=== PATIENT | female | born 1945 | race Caucasian/White ===

== ENCOUNTER 2016-12-08 13:12 | Inpatient (IN) | payer MEDICARE, OTHER ==
--- NOTE | ~2016-12-08 | HP ---
History And Physical [address] [place]. [address] NAME: DIAMOND CHOWDARY : 45 STATUS : ADM IN [facility]#: [id number] AGE: 71 ADM/REG DATE : 12/08/16 MR#: [id number] REPORT SERV DATE: 12/08/16 DICTATED BY: AMINA BRIGGS DATE: 12/08/16 REPORT STATUS : Draft TRANSCRIBED BY: MODL DATE: 12/08/16 DATE OF ADMISSION: 12/08/2016 CHIEF COMPLAINT: Leg swelling. HISTORY OF PRESENT ILLNESS: This is a 71-year-old female patient, who comes to the hospital very often with the same problem, hypervolemia with hypoalbuminemia, came to the hospital with leg swelling for two to three days. She was discharged back in 10/12/2016 after she was treated with aggressive diuretics and also thoracentesis. She was discharged with high dose of protein diet and torsemide, 100 mg once a day. She said she was doing well for five to six weeks, but she started retaining her fluid in her leg back up to thigh. She does have a chronic respiratory failure with hypoxia, though she carries oxygen 2.5 L all the time. She has also complained of dysuria for two days. She feels like she had a urinary tract infection. For her fluid retention, she only takes 32 ounces of water a day at home, and she takes protein booster shakes at home. Her blood work is showing some improvement in her albumin level, which is 1.8 this time compared to last time of 1.3 when she was here. She denies any fever or chills. No vision changes. No headache. No palpitation. No short of breath. No chest pain. No nausea or vomiting. No abdominal pain. No bleeding. All other systems are reviewed and negative. PAST MEDICAL HISTORY: 1. Recurrent admission with a hypervolemia with pleural effusion and vascular congestion. 2. History of a chronic respiratory failure with hypoxia, carrying 2.5 L of oxygen all the time. 3. History of the right upper extremity DVT. 4. Left diaphragm hernia. 5. History of diastolic heart failure. 6. Hypothyroidism. 7. Diabetes. 8. History of CVA. 9. History of esophageal cancer in 1992. 10.Diverticulitis. 11.Peptic ulcer disease. PAST SURGICAL HISTORY: 1. Esophagectomy in 1992 and with stomach pull-through and large hiatal hernia. 2. Cholecystectomy. History And Physical [address] [address] NAME: DIAMOND CHOWDARY : 45 STATUS : ADM IN [facility]#: [id number] AGE: 71 ADM/REG DATE : 12/08/16 MR#: [id number] REPORT SERV DATE: 12/08/16 DICTATED BY: AMINA BRIGGS DATE: 12/08/16 REPORT STATUS : Draft TRANSCRIBED BY: BRO DATE: 12/08/16 3. Thyroid surgery. 4. Left ankle surgery. 5. Right ear surgery. ALLERGIES: BACTRIM. SOCIAL HISTORY: She is a . She lives with her children. Denies any alcohol and smoking use. FAMILY HISTORY: Father had COPD and lung cancer. MEDICATIONS AT HOME: 1. Albuterol as needed. 2. Aspirin 81 mg once a day. 3. Calcium with vitamin D once a day. 4. Valium 5 mg twice a day. 5. Ferrous sulfate 325 once a day. 6. Breo 1 inhaler every day. 7. Levothyroxine 75 mcg once a day. 8. Mag-Oxide 800 mg once a day. 9. Metformin 1000 mg once a day. 10.Multivitamin once a day. 11.Omeprazole 20 mg twice a day. 12.Potassium 40 mEq once a day. 13.Pravachol 40 mg once at bedtime. 14.Aldactone 25 mg twice a day. 15.Demadex 100 mg once a day. PHYSICAL EXAMINATION: VITAL SIGNS: Blood pressure was 130/71, heart rate was 84, respiratory rate 20, saturation is 92% on 2 L of oxygen, temperature is 97.7. GENERAL APPEARANCE: She is alert, awake, not in acute distress. Chronic-ill looking, very pleasant 71-year-old lady. HEENT: Pupils are equal, round, and reactive to light. EOM not intact. CHEST: She has decreased breathing sound on both bases, especially left side is much quieter mid half down. She has a mild crackles on the right base. CARDIOVASCULAR: No murmur, rub, or gallop. Regular rhythm and rate. ABDOMEN: Bowel sounds present. There is no tenderness or rebound tenderness. EXTREMITIES: She has a severe edema up to thigh. LABORATORY DATA: Showed sodium 141, potassium 4.1, creatinine 0.73, hemoglobin 11, magnesium 1.4. WBC 11.1, hemoglobin 11.2, hematocrit 35, platelets 379. An x-ray of the chest showed a vascular congestion with chronic diaphragm hernia. Electrocardiogram showed a sinus rhythm and PACs. ASSESSMENT AND PLAN: 1. Anasarca secondary to hypoalbuminemia, recurrent. History And Physical [address] [address] NAME: DIAMOND CHOWDARY : 45 STATUS : ADM IN [facility]#: [id number] AGE: 71 ADM/REG DATE : 12/08/16 MR#: [id number] REPORT SERV DATE: 12/08/16 DICTATED BY: AMINA BRIGGS DATE: 12/08/16 REPORT STATUS : Draft TRANSCRIBED BY: BRO DATE: 12/08/16 2. Urinary tract infection. 3. Hypoalbuminemia. 4. Chronic respiratory hypoxic failure. 5. Hypothyroidism. Overall, the patient will be hospitalized on telemetry bed with IV diuretics and watching her I's and O's and improving her the swelling. We will measure strict I's and O's and we will insert a Peguero catheter and also we will do the albumin infusion for this case, and also empiric antibiotics with Rocephin for the UTI. Overall, the patient has a fair prognosis. So, this is a recurrent admission. The knows her prognosis. I explained to her and her daughter, and they voiced understanding. EKL/MODL ina Briggs M.D. / [id number] CC: Amina Briggs M.D.
--- NOTE | ~2016-12-08 | DS ---
Discharge Summary [facility] [address] [place]. [address] NAME: DIAMOND CHOWDARY : 45 STATUS : DIS IN PAT#: [id number] AGE: 71 ADM/REG DATE : 12/08/16 MR#: [id number] REPORT SERV DATE: 12/12/16 DICTATED BY: VIRGEN VELÁZQUEZ DATE: 12/11/16 REPORT STATUS : Draft TRANSCRIBED BY: BRO DATE: 12/11/16 ADMISSION DATE: 12/08/2016 DISCHARGE DATE: 12/11/2016 CONSULTATIONS: None. PROCEDURES: None. DISCHARGE DIAGNOSES: 1. Anasarca. 2. Hypoalbuminemia, severe. 3. Proteinuria. 4. Chronic respiratory failure with hypoxia. 5. Diastolic heart failure. 6. Hypothyroidism. 7. Diabetes mellitus type 2. 8. History of cerebrovascular accident. 9. History of esophageal cancer, status post esophagectomy with stomach pull-through and large hiatal hernia. 10.History of diverticulitis. 11.History of peptic ulcer disease. 12.Urinary tract infection. HISTORY OF PRESENT ILLNESS: For detailed HPI, please make reference to Dr. Gomez's dictation on 12/08/2016. In summary, this is a 71-year-old female, who presented to the hospital with generalized body swelling, most severe in the lower extremity. The patient has had multiple admissions and similar presentation of generalized body swelling, found to have severe hypoalbuminemia likely due to poor nutritional intake versus proteinuria. On presentation to the ER, physical examination was significant for bilateral lower extremity edema all the way to the mid thigh. Chest x-ray was significant for vascular congestion with chronic diaphragmatic hernia. An assessment of anasarca secondary to severe albuminuria recurrent was made in the ER. The patient was admitted to the Hospitalist Service. HOSPITAL COURSE: 1. Anasarca secondary to severe hypoalbuminemia. On presentation, the patient's albumin was 1.8. Also noted to have persistent proteinuria; however, renal function is within normal limits. Severe proteinuria etiology likely related to poor nutritional intake as the patient has a prior history of esophagectomy and occasionally has limited oral intake. The patient was started on aggressive IV diuretics with IV albumin in the hospital. The patient had adequate urine output. Generalized body swelling significantly improved. The patient's p.o. intake also improved during the course of this admission. A 24-hour urine was done that showed that the patient had persistent proteinuria. At the time of discharge, the patient was noted to have become euvolemic on physical exam, no longer having lower extremity edema. The patient was discharged home on p.o. Bumex 2 mg p.o. q.8 hours with potassium supplements daily and also Discharge Summary [address] [place]. [address] NAME: DIAMOND CHOWDARY : 45 STATUS : DIS IN PAT#: [id number] AGE: 71 ADM/REG DATE : 12/08/16 MR#: [id number] REPORT SERV DATE: 12/12/16 DICTATED BY: VIRGEN VELÁZQUEZ DATE: 12/11/16 REPORT STATUS : Draft TRANSCRIBED BY: BRO DATE: 12/11/16 advised to have increased protein intake as well as to follow up with Nephrology as an outpatient for definitive etiology of persistent proteinuria. 2. Urinary tract infection. The patient's urine was positive for E. coli during this admission. The patient had IV antibiotics at the time of discharge. The patient was transitioned to p.o. Ceftin to complete a total of seven days' treatment. 3. Chronic hypoxic respiratory failure. Noted to have chronic hypoxic respiratory failure, possibly due to pulmonary edema as well as undiagnosed obstructive sleep apnea. The patient was advised to have a sleep study as an outpatient. Following IV diuresis, the patient's oxygenation significantly improved. The patient was discharged back home on 2.5 L of O2 at baseline. 4. Hypothyroidism. The patient's Synthroid was continued throughout the course of this admission. DISCHARGE MEDICATIONS: 1. Bumex 2 mg p.o. q.8 hours. 2. Aspirin 81 mg p.o. daily. 3. Calcium plus vitamin D 600 mg p.o. daily. 4. Valium 5 mg p.o. b.i.d. p.r.n. 5. Ferrous sulfate 325 mg p.o. daily. 6. Levothyroxine 75 mcg p.o. daily. 7. Mag-Oxide 400 mg p.o. daily. 8. Multivitamins one p.o. daily. 9. Omeprazole 20 mg p.o. daily. 10.Potassium 20 mEq p.o. daily. 11.Spironolactone 25 mg tab p.o. b.i.d. 12.Metformin extended release 1000 mg p.o. daily. 13.Glimepiride 2 mg p.o. daily. 14.Albuterol inhaler. DISCHARGE FOLLOWUP: 1. The patient to follow up with Nephrology as an outpatient for further workup of definitive etiology of persistent proteinuria. 2. The patient to follow up with primary care physician within two weeks of discharge. DISCHARGE DIET: High-protein diet. DISCHARGE ACTIVITIES: As tolerated. Greater than 30 minutes was used to prepare this patient's discharge, reconcile medication, and advised the patient on discharge plans and followup. FRACISCOO/BRO Virgen Velázquez MD Discharge Summary [address] [place] [address] NAME: DIAMOND CHOWDARY : 45 STATUS : DIS IN PAT#: [id number] AGE: 71 ADM/REG DATE : 12/08/16 MR#: [id number] REPORT SERV DATE: 12/12/16 DICTATED BY: VIRGEN VELÁZQUEZ DATE: 12/11/16 REPORT STATUS : Draft TRANSCRIBED BY: BRO DATE: 12/11/16 / [id number] CC: Virgen Velázquez MD
[2016-12-08 12:25] LABS: BASOPHILS 0.4 %; BASOPHILS ABSOLUTE 0.04 10/3/uL (0.0-0.16); EOSINOPHILS 0.4 %; EOSINOPHILS ABSOLUTE 0.04 10/3/uL (0.0-0.53); HEMOGLOBIN 11.2 g/dL (12.0-16.0); IMMATURE GRANULOCYTES 0.2 %; IMMATURE GRANULOCYTES ABSOLUTE 0.02 10/3/uL (0.0-0.11); LYMPHOCYTES 8.9 %; LYMPHOCYTES ABSOLUTE 0.99 10/3/uL (0.67-4.30); MEAN CORPUSCULAR HEMOGLOB 30.4 pg (26.0-34.0); MEAN CORPUSCULAR VOLUME 95.1 fL (80-100); MEAN PLATELET VOLUME 9.6 fL (9.2-13.0); MONOCYTES 7.2 %; NEUTROPHILS 82.9 %; NEUTROPHILS ABSOLUTE 9.18 10/3/uL (2.02-8.40); PLATELET COUNT 379 10/3/uL (150-400); RBC DISTRIBUTION WIDTH 13.4 % (12.0-16.0); RED CELL COUNT 3.68 10/6/uL (4.0-5.6)
[2016-12-08 12:26] LABS: ER CBC TAT 0 Hrs 10 Mins; WHITE BLOOD CELLS 11.1 10/3/uL (4.5-10.5)
[2016-12-08 12:27] LABS: MANUAL DIFF NO %
[2016-12-08 12:28] LABS: ASCORBIC ACID (UR NOT ORDER) NEG (NEG); BILIRUBIN, URINE NEGATIVE (NEG); ER URINALYSIS TAT 0 Hrs 12 Mins; KETONE, URINE NEGATIVE (NEG); LEUKOCYTE ESTERASE(NOT OR LARGE (NEG); NITRITE (URINE) NEG (NEG); WBC (NOT ORDERED) (RFLEX) 40 (0-5)
[2016-12-08 12:34] LABS: INTERNATIONAL NORMAL RATI 1.1 UNITS (-); PARTIAL THROMBO TIME 26.5 SEC (22.5-37.2); PROTIME (NOT ORD) 13.6 SEC (12.0-14.5)
[2016-12-08 12:38] LABS: ALBUMIN 1.8 G/DL (3.5-5.0); CALCIUM, SERUM 8.2 MG/DL (8.5-10.4); CHEST PAIN PROFILE TAT 0 Hrs 22 Mins; CHLORIDE, SERUM 102 MMOL/L (96-112); CO2 (CARBON DIOXIDE) 34 MMOL/L (24-34); CREATININE 0.73 MG/DL (0.55-1.02); DIRECT BILIRUBIN 0.1 MG/DL (0.0-0.4); GFR AFRICAN AMERICAN 96 ML/MIN (>=60); GFR NON AFRICAN AMERICAN 83 ML/MIN (>=60); POTASSIUM, SERUM 4.1 MMOL/L (3.5-5.3); SGOT(AST) 15 U/L (5-40); SGPT(ALT) 19 U/L (5-65); SODIUM, SERUM 141 MMOL/L (135-148); TOTAL PROTEIN 5.8 G/DL (6.0-8.5); TROPONIN I <0.02 NG/ML (<0.05)
[2016-12-08 12:39] LABS: ALKALINE PHOSPHATASE 169 U/L (45-117); BUN (BLOOD UREA NITROGEN) 11 MG/DL (6-23); GLUCOSE, SERUM 192 MG/DL (60-99); INDIRECT BILIRUBIN(NOT ORDER) 0.1 MG/DL (0.1-0.9); TOTAL BILIRUBIN 0.2 MG/DL (0-1.2)
[~2016-12-08 13:12] MED LIST: *UNABLE1; ACET500CAP PO; ALLEGRA180 PO; AMARYL4 PO; ASAB PO; ASTHMACORT INHALER IN; BENICAR HCT1 TA1 PO; BETA-VAL0.1 % TOP; BREO ELLIPTA INH; CALTRA600D PO; CEFT5 PO; CENTRUM PO; CIP2 PO; CYANO1000T PO; DEMA100 PO; DEMA20 PO; ELIQUIS 5 MG TAB5 MG PO; FERROUS SULF325 M1 PO; FORTAMET1000 MG PO; FORTAMET500 MG PO; GLUCOPHAGE1000 MG PO; GLUCPH PO; HALF81 PO; IMDUR30 PO; IRON325 MG PO; KDUR20 PO; KLOR-CON M2020 MEQ PO; L20 PO; L40 PO; LEVOTHYROXIN75 MCG PO; LOP25 PO; MAGOX4 PO; MULTIPLE VIT PO; MULTIVIT/MIN PO; NITROSTAT0.4 MG SL; OTC PROBIOTIC; PRAVACHOL40 MG PO; PRILO PO; PRIN20 PO; PROAIR HFA INH; PROTONIX PO; PROVENTSOL INH; REG PO; SLOWMAG PO; SPIRO25 PO; SPIRO50 PO; SYN075 PO; THERGRANM PO; V5 PO; VENTOLIN HFA INH; VITAMIN B-121000 MC1 SL; XARELTO15 MG PO; XARELTO20 MG PO; ZESTORETIC1 TA1 PO; ZOCOR20 PO
[2016-12-08] MEDS ORDERED: 8 HOUR650 MG PO (13:40)
[2016-12-08] MEDS ORDERED: AMARYL2 PO (13:44)
[2016-12-08 17:56] LABS: ASCORBIC ACID (UR NOT ORDER) NEG (NEG); BILIRUBIN, URINE NEGATIVE (NEG); KETONE, URINE NEGATIVE (NEG); LEUKOCYTE ESTERASE(NOT OR LARGE (NEG)
[2016-12-08 18:02] LABS: WBC (NOT ORDERED) (RFLEX) > 182 (0-5)
[2016-12-09 07:19] LABS: BASOPHILS 0.4 %; BASOPHILS ABSOLUTE 0.04 10/3/uL (0.0-0.16); EOSINOPHILS 0.5 %; EOSINOPHILS ABSOLUTE 0.05 10/3/uL (0.0-0.53); HEMATOCRIT 31.5 % (36.0-48.0); IMMATURE GRANULOCYTES 0.3 %; IMMATURE GRANULOCYTES ABSOLUTE 0.03 10/3/uL (0.0-0.11); LYMPHOCYTES 11.6 %; LYMPHOCYTES ABSOLUTE 1.11 10/3/uL (0.67-4.30); MEAN CORPUS HGB CONC 31.7 g/dL (32.0-36.0); MEAN CORPUSCULAR HEMOGLOB 31.1 pg (26.0-34.0); MEAN CORPUSCULAR VOLUME 97.8 fL (80-100); MEAN PLATELET VOLUME 9.7 fL (9.2-13.0); MONOCYTES 10.1 %; MONOCYTES ABSOLUTE 0.97 10/3/uL (0.21-1.20); NEUTROPHILS 77.1 %; NEUTROPHILS ABSOLUTE 7.39 10/3/uL (2.02-8.40); PLATELET COUNT 336 10/3/uL (150-400); RBC DISTRIBUTION WIDTH 13.7 % (12.0-16.0); RED CELL COUNT 3.22 10/6/uL (4.0-5.6); WHITE BLOOD CELLS 9.6 10/3/uL (4.5-10.5)
[2016-12-09 07:24] LABS: MANUAL DIFF NO %
[2016-12-09 07:39] LABS: BUN (BLOOD UREA NITROGEN) 11 MG/DL (6-23); CALCIUM, SERUM 7.8 MG/DL (8.5-10.4); CHLORIDE, SERUM 96 MMOL/L (96-112); CO2 (CARBON DIOXIDE) 38 MMOL/L (24-34); CREATININE 0.53 MG/DL (0.55-1.02); GFR AFRICAN AMERICAN 111 ML/MIN (>=60); GFR NON AFRICAN AMERICAN 96 ML/MIN (>=60); GLUCOSE, SERUM 71 MG/DL (60-99); POTASSIUM, SERUM 3.6 MMOL/L (3.5-5.3); SODIUM, SERUM 142 MMOL/L (135-148)
[2016-12-10 06:05] LABS: BUN (BLOOD UREA NITROGEN) 9 MG/DL (6-23); CALCIUM, SERUM 8.1 MG/DL (8.5-10.4); CHLORIDE, SERUM 93 MMOL/L (96-112); CO2 (CARBON DIOXIDE) 39 MMOL/L (24-34); CREATININE 0.65 MG/DL (0.55-1.02); GFR AFRICAN AMERICAN 104 ML/MIN (>=60); GFR NON AFRICAN AMERICAN 89 ML/MIN (>=60); GLUCOSE, SERUM 75 MG/DL (60-99); POTASSIUM, SERUM 3.9 MMOL/L (3.5-5.3); SODIUM, SERUM 139 MMOL/L (135-148)
[2016-12-11 06:29] LABS: BUN (BLOOD UREA NITROGEN) 7 MG/DL (6-23); CHLORIDE, SERUM 90 MMOL/L (96-112); CO2 (CARBON DIOXIDE) 37 MMOL/L (24-34); CREATININE 0.56 MG/DL (0.55-1.02); GFR AFRICAN AMERICAN 109 ML/MIN (>=60); GFR NON AFRICAN AMERICAN 94 ML/MIN (>=60); POTASSIUM, SERUM 4.1 MMOL/L (3.5-5.3); SGOT(AST) 8 U/L (5-40); SGPT(ALT) 15 U/L (5-65); SODIUM, SERUM 139 MMOL/L (135-148); TOTAL PROTEIN 5.8 G/DL (6.0-8.5)
[2016-12-11 06:32] LABS: A/G RATIO 1.3 (0.7-1.9); ALBUMIN 3.3 G/DL (3.5-5.0); ALKALINE PHOSPHATASE 97 U/L (45-117); GLOBULIN 2.5 G/DL (2.5-4.1); GLUCOSE, SERUM 158 MG/DL (60-99); TOTAL BILIRUBIN 0.7 MG/DL (0-1.2)
[2016-12-11] MEDS ORDERED: BUM2 PO (16:49)
[2016-12-11] MEDS ORDERED: CEFT2 PO (16:51)
== END 2016-12-11 17:40 | disposition home or self-care (01) | DRG 844 ==
LOC: ER 13:12 → 2SO 14:43
PROVIDERS: Emergency Medicine; Internal Medicine
DX: E88.09 Other disorders of plasma-protein metabolism, not elsewhere classified (principal); J81.1 Chronic pulmonary edema; I50.32 Chronic diastolic (congestive) heart failure; N39.0 Urinary tract infection, site not specified; E86.1 Hypovolemia; E11.9 Type 2 diabetes mellitus without complications; K27.9 Peptic ulcer, site unspecified, unspecified as acute or chronic, without hemorrhage or perforation; B96.20 Unspecified Escherichia coli [E. coli] as the cause of diseases classified elsewhere; J96.11 Chronic respiratory failure with hypoxia; E03.9 Hypothyroidism, unspecified; K44.9 Diaphragmatic hernia without obstruction or gangrene; G47.33 Obstructive sleep apnea (adult) (pediatric); Z80.1 Family history of malignant neoplasm of trachea, bronchus and lung; Z88.1 Allergy status to other antibiotic agents; Z86.73 Personal history of transient ischemic attack (TIA), and cerebral infarction without residual deficits; Z98.890 Other specified postprocedural states; Z86.718 Personal history of other venous thrombosis and embolism
CPT/HCPCS: 71010; 80048; 80053; 80076; 81001; 82962; 83735; 83880; 84443; 84484; 85025; 85610; 85730; 87040; 87077; 87086; 87186; 93005; 93971; 94640; 97162-GP; 99285; A9270-GY; G8978-CK-GP; G8979-CK-GP; J2405; P9047